=== PATIENT | male | born 1960 | race Caucasian/White ===

== ENCOUNTER 2023-06-08 18:55 | Inpatient (IN) | payer BC, SELFPAY ==
[2023-06-06 06:52] VITALS: BMI 32.0
[2023-06-06 08:57] LABS: Hemoglobin 13.3 g/dL (13.0-18.0); Mean Corp Hgb Conc. 33.3 g/dL (33.0-37.0); Mean Corpuscular Hgb 30.6 pg (27.0-31.0); Mean Platelet Volume 10.2 fL (7.4-10.4); Platelet Count 260 10^3/uL (130-400); Red Blood Cell Count 4.35 10^6/uL (4.70-6.10); Red Cell Dist. Width 13.2 % (11.5-14.5); White Blood Cell Count 6.8 10^3/uL (4.8-10.8)
[2023-06-06 08:58] LABS: Urine Albumin Trace (Neg - Trace); Urine Bilirubin Negative (Negative); Urine Character Clear (Clear); Urine Color Yellow; Urine Glucose Negative (Negative); Urine Ketone Negative (Negative); Urine Leukocyte Trace (Negative); Urine Nitrite Negative (Negative); Urine Occult Blood Negative (Negative); Urine Specific Gravity 1.015 (<1.030); Urine Urobilinogen 2+ (Neg - 1+)
[2023-06-06 09:09] LABS: Urine Bacteria Few (Negative); Urine Red Blood Cell 0-2 /HPF (0-2); Urine Squamous Cell 0-2 /LPF (Few); Urine White Cell 0-2 /HPF (0-5)
[2023-06-06 09:29] LABS: Blood Urea Nitrogen 14 mg/dl (9-20); Calcium 9.4 mg/dl (8.4-10.2); Carbon Dioxide 30 mmol/L (22-30); Chloride 102 mmol/L (98-107); Estimated Creatinine Clearance > 125 ml/min; Glucose 133 mg/dl (70-99); Potassium 4.3 mmol/L (3.5-5.1); Sodium 138 mmol/L (135-145); eGFR > 60.00
[2023-06-06 09:35] LABS: PT 11.9 Sec (11.4-14.6)
[2023-06-08] VITALS (11 sets, daily range): BP systolic 124–185; BP diastolic 64–85; BMI 32.0
[2023-06-08] MEDS: NORMOSOL-R 1000 IV (10:50)
[2023-06-08 17:55] LABS: Hematocrit 36.1 % (39.0-52.0); Hemoglobin 12.4 g/dL (13.0-18.0)
[2023-06-08] MEDS: NSS 1000 IV (17:58)
[2023-06-08 18:15] LABS: Blood Urea Nitrogen 16 mg/dl (9-20); Calcium 7.9 mg/dl (8.4-10.2); Carbon Dioxide 20 mmol/L (22-30); Chloride 104 mmol/L (98-107); Estimated Creatinine Clearance > 125 ml/min; Glucose 180 mg/dl (70-99); Potassium 4.2 mmol/L (3.5-5.1); Sodium 134 mmol/L (135-145); eGFR > 60.00
--- NOTE | 2023-06-08 18:35 | SUR.PHASEI ---
Two calls made to 2 [facility] 1829. to give report RN busy. Bari stewart RN BSN.
--- NOTE | 2023-06-08 19:00 | PTCARENOTE ---
Pt received from PACU. stable vitals. No Pain. Pt AAOx3. Abdomen with 5 lap sites CDI/open to air. NS infusing at 125mL/hr per order. [place] draining yellow urine. POC reviewed with patient.
[2023-06-08] MEDS: SENOKOT 8.59999999999999964 MG PO (20:00)
[2023-06-08] MEDS: PROTONIX 40 MG PO (20:00)
[2023-06-08] MEDS: NSS IV (20:01)
[2023-06-09] VITALS (7 sets, daily range): BP systolic 94–144; BP diastolic 36–70
[2023-06-09] MEDS: NSS 1000 IV (01:29)
[2023-06-09] MEDS: PERCOCET 5/325 1 TABLET PO ×4 (01:30→21:10)
[2023-06-09 06:19] LABS: Hematocrit 30.1 % (39.0-52.0); Mean Corp Hgb Conc. 32.9 g/dL (33.0-37.0); Mean Corpuscular Hgb 30.9 pg (27.0-31.0); Mean Corpuscular Volume 94.1 fL (80.0-94.0); Mean Platelet Volume 10.4 fL (7.4-10.4); Platelet Count 243 10^3/uL (130-400); Red Cell Dist. Width 13.7 % (11.5-14.5)
[2023-06-09 06:20] LABS: Hemoglobin 9.9 g/dL (13.0-18.0)
[2023-06-09 06:26] LABS: Blood Urea Nitrogen 18 mg/dl (9-20); Calcium 7.9 mg/dl (8.4-10.2); Carbon Dioxide 25 mmol/L (22-30); Chloride 104 mmol/L (98-107); Estimated Creatinine Clearance 89 ml/min; Glucose 219 mg/dl (70-99); Potassium 4.6 mmol/L (3.5-5.1); Sodium 132 mmol/L (135-145); eGFR > 60.00
[2023-06-09 07:13] LABS: Hepatitis C Antibody Negative (Negative)
[2023-06-09] MEDS: NON-FORMULARY ITEM 420 MG PO (08:17)
[2023-06-09] MEDS: ZESTRIL 20 MG PO (08:18)
[2023-06-09] MEDS: ORETIC 25 MG PO (08:18)
[2023-06-09] MEDS: LIPITOR 10 MG PO (08:18)
[2023-06-09] MEDS: PROTONIX 40 MG PO ×2 (08:18→19:25)
[2023-06-09] MEDS: LEXAPRO 20 MG PO (08:18)
[2023-06-09] MEDS: SENOKOT 8.59999999999999964 MG PO ×2 (08:18→19:25)
--- NOTE | 2023-06-09 10:10 | W.PN.URO.CBU ---
Today's Communication / Plan
-
Repeat H&H
Discharge planning
Assessment / Plan
-
63M s/p Robotic L nephrectomy 06/08/23
Post op anemia - hemodilution vs post op blood loss. Repeat H&H this afternoon
Regular diet
[place] removed
Out of bed/ambulate
Pain well controlled
Possible discharge this afternoon pending repeat labs
Diagnosis
-
Date of Service: June 09, 2023
-
Patient Diagnosis: L renal mass
Post Op Day: s/p robotic L nephrectomy 06/08/23
Subjective
-
Feeling well this AM
tolerated liquids overnight
Not ambulated yet
Objective
-
Vital Signs
Temp Pulse Resp BP Pulse Ox
98.1 F 60 17 144/69 97
06/09/23 07:30 06/09/23 07:30 06/09/23 07:30 06/09/23 07:30 06/09/23 08:09
Intake and Output
06/08/23 06/09/23 06/10/23
06:59 06:59 06:59
Intake Total 2679 / 2679 1200 / 1200
Output Total 1030 / 1030
Balance 1649 / 1649 1200 / 1200
Intake:
Oral fluids 933 / 933 1200 / 1200
IV fluids (Total) 1746 / 1746
Norm 100 / 100
Nss 1,000 ml @ 125 mls/hr IV . 146 / 146
Q8H NEO Rx#:[id number]
Output:
Urine, [place] 1030 / 1030
Laboratory Results
06/09/23 05:27
Physical Exam
-
General - well developed, well nourished, no acute distress
Chest - clear bilaterally
Abdomen - soft, non-tender, no guarding. Abdomen slightly firm which is his baseline, c/w preop
Skin - warm & dry with no rash
Neuro - AOx3, no motor deficits
Extremities - no clubbing, no cyanosis, no edema
Incision - clean, dry
Dressing - clean, dry, intact
--- NOTE | 2023-06-09 11:30 | CM ---
Chart reviewed. Spoke with pt at bedside
Pt lives with his in a multi-story home
Describes self as independent, driving
Denies DME, past HH/Snf
PCP -Dr Hull
Pharm - [facility]
CM will follow for d/c needs
Anticipate home no needs
[2023-06-09 14:45] LABS: Hematocrit 26.7 % (39.0-52.0); Hemoglobin 8.9 g/dL (13.0-18.0)
--- NOTE | 2023-06-09 16:31 | W.PN.UPDATE ---
Update Note
Progress Note Update
Repeat HGB continued to decrease today
Vitals stable and patient feeling well, ambulated, tolerating diet
Will continue serial HGB next in AM
Transfuse PRN as long as patient remains hemodynamically stable
Possible discharge tomorrow if HGB stabilized
[2023-06-09] MEDS: BENADRYL 25 MG PO (22:48)
[2023-06-10 06:12] LABS: % Basophils 0.3 % (0-2); % Eosinophils 0.4 % (0-6); % Immature Granulocytes 0.4 % (0-0.5); % Lymphocytes 20.5 % (20.5-51.1); % Monocytes 12.9 % (1.7-9.3); % Neutrophils 65.5 % (42.2-75.2); Absolute Lymphocytes 1.5 10^3/uL (1.2-3.4); Absolute Neutrophils 4.9 10^3/uL (1.4-6.5); Hematocrit 23.7 % (39.0-52.0); Hemoglobin 7.9 g/dL (13.0-18.0); Mean Corp Hgb Conc. 33.3 g/dL (33.0-37.0); Mean Corpuscular Hgb 31.3 pg (27.0-31.0); Mean Platelet Volume 10.7 fL (7.4-10.4); Nucleated Red Blood Cells % 0 % (-); Platelet Count 216 10^3/uL (130-400); Red Blood Cell Count 2.52 10^6/uL (4.70-6.10); White Blood Cell Count 7.5 10^3/uL (4.8-10.8)
[2023-06-10 06:46] LABS: Blood Urea Nitrogen 31 mg/dl (9-20); Calcium 8.1 mg/dl (8.4-10.2); Carbon Dioxide 25 mmol/L (22-30); Chloride 101 mmol/L (98-107); Estimated Creatinine Clearance 52 ml/min; Glucose 164 mg/dl (70-99); Potassium 4.2 mmol/L (3.5-5.1); Sodium 131 mmol/L (135-145); eGFR 44.74
[2023-06-10 07:20] VITALS: BP 107/40
[2023-06-10] MEDS: NON-FORMULARY ITEM 420 MG PO (07:46)
[2023-06-10] MEDS: LIPITOR 10 MG PO (07:47)
[2023-06-10] MEDS: ZESTRIL 20 MG PO (07:47)
[2023-06-10] MEDS: SENOKOT 8.59999999999999964 MG PO (07:47)
[2023-06-10] MEDS: TYLENOL 650 MG PO (07:47)
[2023-06-10] MEDS: ORETIC 25 MG PO (07:47)
[2023-06-10] MEDS: LEXAPRO 20 MG PO (07:47)
[2023-06-10] MEDS: PROTONIX 40 MG PO ×2 (07:47→19:55)
--- NOTE | 2023-06-10 09:56 | W.PN.URO.CBU ---
Today's Communication / Plan
-
iv tranxeamix acid and 5 ppm hgb
Assessment / Plan
-
63M s/p Robotic L nephrectomy 06/08/23
Post op anemia - hemodilution vs post op blood loss. Repeat H&H this afternoon
Regular diet
[place] removed
Out of bed/ambulate
Phgb furtgher down 7.5 no compromise will add iv tranxeamic acid repaet h/h may trasndsfuse
Diagnosis
-
Date of Service: June 10, 2023
-
Patient Diagnosis:
Post Op Day:
Patient Diagnosis: L renal mass
Post Op Day: s/p robotic L nephrectomy 06/08/23
Subjective
-
feels well
Objective
-
Vital Signs
Temp Pulse Resp BP Pulse Ox
99.7 F 72 17 107/40 96
06/10/23 07:20 06/10/23 07:20 06/10/23 07:20 06/10/23 07:20 06/10/23 07:20
Intake and Output
06/09/23 06/10/23 06/11/23
06:59 06:59 06:59
Intake Total 2679 / 2679 2510 / 2510
Output Total 1030 / 1030 450 / 450
Balance 1649 / 1649 2059 / 206
Intake:
Oral fluids 933 / 933 2510 / 2510
IV fluids (Total) 1746 / 1746
Norm 100 / 100
Nss 1,000 ml @ 125 mls/hr IV . 146 / 146
Q8H NEO Rx#:[id number]
Output:
Urine, [place] 1030 / 1030
Urine, Voided 450 / 450
Other:
Number of approximated MODERATE 2
amounts of urine
Laboratory Results
06/10/23 05:02
06/10/23 05:02
Review of Systems
-
: No Symptoms
Physical Exam
-
General - well developed, well nourished, no acute distress
Chest - clear bilaterally
Abdomen - soft, non-tender, positive bowel sounds, no CVAT, no incisional pain or distention
Genitalia - normal
Rectal - normal
Skin - warm & dry with no rash
Neuro - AOx3, no motor deficits
Extremities - no clubbing, no cyanosis, no edema
Incision - clean, dry
Dressing - clean, dry, intact
Care Review
Data Reviewed
Discussed with: Nursing
[2023-06-10] MEDS: TRANEXAMIC ACID 100 IV (10:25)
[2023-06-10 15:00] VITALS: BP 125/53
[2023-06-10 17:13] LABS: Hemoglobin 7.9 g/dL (13.0-18.0)
[2023-06-10] MEDS: SENOKOT PO (19:55)
[2023-06-10] MEDS: PERCOCET 5/325 1 TABLET PO (19:55)
[2023-06-10] MEDS: BENADRYL 25 MG PO (22:57)
[2023-06-10 23:00] VITALS: BP 127/60
[2023-06-11 06:28] LABS: Hemoglobin 7.2 g/dL (13.0-18.0)
[2023-06-11 07:25] VITALS: BP 141/76
[2023-06-11] MEDS: ORETIC 25 MG PO (10:33)
[2023-06-11] MEDS: NON-FORMULARY ITEM 420 MG PO (10:33)
[2023-06-11] MEDS: ZESTRIL 20 MG PO (10:34)
[2023-06-11] MEDS: PROTONIX 40 MG PO (10:34)
[2023-06-11] MEDS: LIPITOR 10 MG PO (10:35)
[2023-06-11] MEDS: LEXAPRO 20 MG PO (10:35)
[2023-06-11] MEDS: SENOKOT PO (10:35)
[2023-06-11] MEDS: PERCOCET 5/325 1 TABLET PO (10:38)
[2023-06-11] MEDS: TRANEXAMIC ACID 100 IV (10:47)
[2023-06-11] MEDS: ProAIR HFA INHALER 2 PUFF INH (10:59)
--- NOTE | 2023-06-11 11:20 | W.PN.URO.CBU ---
Today's Communication / Plan
-
possible discharge if sa=table
Assessment / Plan
-
63M s/p Robotic L nephrectomy 06/08/23
Post op anemia - hemodilution vs post op blood loss. Repeat H&H this afternoon
Regular diet
[place] removed
Out of bed/ambulate
Phgb furtgher down 7.5 no compromise will add iv tranxeamic acid repaet h/h may trasndsfuse
Diagnosis
-
Date of Service: June 11, 2023
-
Patient Diagnosis:
Post Op Day:
Patient Diagnosis:
Post Op Day:
Patient Diagnosis: L renal mass
Post Op Day: s/p robotic L nephrectomy 06/08/23
Subjective
-
feels well
Objective
-
Vital Signs
Temp Pulse Resp BP Pulse Ox
98.0 F 82 14 122/76 95
06/11/23 07:25 06/11/23 11:02 06/11/23 11:02 06/11/23 10:33 06/11/23 11:02
Intake and Output
06/10/23 06/11/23 06/12/23
06:59 06:59 06:59
Intake Total 2510 / 2510 880 / 880
Output Total 450 / 450 1120 / 1120
Balance 2059 / 2059 -240 / -240
Intake:
Oral fluids 2510 / 2510 880 / 880
Output:
Urine, Voided 450 / 450 1120 / 1120
Other:
Number of approximated MODERATE 2
amounts of urine
Laboratory Results
06/10/23 05:02
Review of Systems
-
Constitutional: No Symptoms
Abdomen/GI: No Symptoms
: No Symptoms
Physical Exam
-
General - well developed, well nourished, no acute distress
Chest - clear bilaterally
Abdomen - soft, non-tender, positive bowel sounds, no CVAT, no incisional pain or distention
Genitalia - normal
Rectal - normal
Skin - warm & dry with no rash
Neuro - AOx3, no motor deficits
Extremities - no clubbing, no cyanosis, no edema
Incision - clean, dry
Dressing - clean, dry, intact
Counseling
-
possible d/c tesxt dr corea with 3 pm hgb/ hct
Care Review
Data Reviewed
Discussed with: Nursing
--- NOTE | 2023-06-11 14:56 | PTCARENOTE ---
Addendum entered by Jenifer Natarajan RN 06/11/23 15:50:
Hg 7.5, notified Dr. Fontaine, it is ok that pt heads home.
Original Note:
poke with Dr. Fontaine on the phone at 0820 this morning regarding pt Hg 7.2. Doctor would like another unit of Tranexamic Acid 1gm then repeat Hg at 1500 and then may possibly be d/c. Will TT doctor at this time and will make decision. Verbal order
written and sent to pharmacy.
[2023-06-11 15:05] LABS: Hemoglobin 7.5 g/dL (13.0-18.0)
[2023-06-11 16:32] VITALS: BP 162/61
--- NOTE | 2023-07-24 13:06 | W.DS.TRANS ---
DC Summary - [employer]
-
Discharge Instructions:
Sleep Apnea Risk Intermediate
Discharge Diagnosis/Procedures Left kidney mass
Robotic assisted left nephrectomy
Diet No restrictions
Activity No strenuous activity
Additional Activity avoid lifting and straining for at least 4 weeks
after surgery to avoid hernias
Driving Restrictions As prior to admission
Bathing Restrictions OK to Shower
Wound Care gently rinse incisions in the shower. Don't pick
off glue or scrub
Instructions:
Stand-Alone Forms:
Changes to Home Medications: No
Discharge Medications:
DC Medications w/original date entered in [employer]
acetaminophen 500 mg tablet 500 mg PO HS PRN pain 06/06/23
albuterol sulfate 90 mcg/actuation aerosol inhaler 2 puff inhalation Q6H PRN asthma 06/06/23
atorvastatin 10 mg tablet 10 mg PO DAILY 06/06/23
escitalopram oxalate 20 mg tablet 20 mg PO DAILY 06/06/23
hydrochlorothiazide 25 mg tablet 25 mg PO DAILY 06/06/23
ibrutinib 140 mg tablet (Imbruvica) 420 mg PO DAILY 06/06/23
ibuprofen 200 mg tablet 200 - 400 mg PO Q6H PRN pain 06/06/23
lisinopril 20 mg tablet 20 mg PO DAILY 06/06/23
omeprazole 40 mg capsule,delayed release 40 mg PO BID 06/06/23
oxycodone-acetaminophen 5 mg-325 mg tablet 1 tab PO Q4HPRN PRN moderate pain #20 tabs 06/09/23
Home Medication Changes
Pending Results: Yes (pathology)
== END 2023-06-11 16:41 | disposition home or self-care (01) | DRG 658 ==
LOC: 2 SOUTH 18:55
PROVIDERS: Specialist; ADMITTING PHYSICIAN Urology
PROC: 0TT14ZZ Resection of Left Kidney, Percutaneous Endoscopic Approach (ICD-10-PCS; 2023-06-08)
DX: C64.2 Malignant neoplasm of left kidney, except renal pelvis (principal)
CPT/HCPCS: 88307; 36415; 80048; 81003; 81015; 85014; 85018; 85025; 85027; 85610; 85730; 86803; 86850; 86900; 86901; 86920; 88341; 88342; 93005; 94640